=== PATIENT | female | born 1990 | race Caucasian/White ===

== ENCOUNTER 2022-10-09 16:59 | Emergency (ER) | payer BC ==
[~2022-10-09] VITALS: Ht 165.1 cm; Wt 72.6 kg
[2022-10-09] MEDS ORDERED: PREDNISONE 20 MG TAB PO ONE (17:30)
[2022-10-09] MEDS ORDERED: PROAIR DIGIHAL90 MCG PO (18:13)
[2022-10-09] MEDS ORDERED: PREDNISONE50 MG PO (18:13)
[2022-10-09] MEDS ORDERED: BENZONATATE100 MG PO (18:13)
== END 2022-10-09 19:05 | disposition home or self-care (01) ==
LOC: ER 17:16
DX: R50.9 Fever, unspecified (principal); J40 Bronchitis, not specified as acute or chronic; R05.9 Cough, unspecified; Z20.822 Contact with and (suspected) exposure to COVID-19; F17.210 Nicotine dependence, cigarettes, uncomplicated
CPT/HCPCS: 0223U; 36415; 71045; 87400; 99283; J7512